=== PATIENT | female | born 1935 | race Caucasian/White ===

== ENCOUNTER 2018-02-23 10:42 | Emergency (ER) | payer OTHER ==
[~2018-02-23] VITALS: Ht 157.5 cm; Wt 56.7 kg
--- NOTE | 2018-02-23 11:06 | ED HEADACHE COMPLAINT ---
History of Present Illness General Chief Complaint: Headache Stated Complaint: BIBA YOUNG Source: patient, EMS Exam Limitations: poor historian Vital Signs & Intake/Output Vital Signs & Intake/Output Vital Signs Date Time Temp Pulse Resp B/P B/P Pulse O2 O2 Flow FiO2 Mean Ox Delivery Rate 02/23 1728 73 20 148/89 97 Room Air 02/23 1333 97.6 68 17 152/100 96 Room Air 02/23 1048 97.1 72 18 159/105 98 Room Air ED Intake and Output 02/24 0000 02/23 1200 Intake Total Output Total 300 Balance -300 Output, Urine 300 Patient 125 lb Weight Allergies Coded Allergies: No Known Allergies (02/23/18) Reconcile Medications Diltiazem HCl (Tiazac) (Unknown Strength) CAPSULE.ER (Unknown Dose) PO DAILY HEART (Reported) Fenofibrate Nanocrystallized (Fenofibrate) 48 MG TABLET 1 TAB PO DAILY CHOLESTEROL (Reported) Furosemide 40 MG TABLET 1 TAB PO DAILY WATER RETENTION (Reported) Metoprolol Tartrate (Unknown Strength) TABLET (Unknown Dose) PO DAILY HEART ( Reported) Minoxidil 10 MG TABLET 1 TAB PO DAILY HEART (Reported) Potassium Chloride (Unknown Strength) TAB.ER.PRT (Unknown Dose) PO DAILY SUPPLEMENT (Reported) Triage Note: PT TO ER VIA AMBULANCE, STATES THAT THIS AM WHEN SHE GOT OUT OF BED SHE FELT A LITTLE DIZZY AND SHE ATE AND WAS FEELING BETTER, PT HAS HISTORY OF HTN AND STATES THAT WHEN HER AIDE TOOK HER BP IT WAS ELEVATED, BP 159/105 AUTO AND 158/100 MANUAL AT TRIAGE. PT STATES THAT WHEN SHE MOVES SHE HAS BEEN FEELING DIZZY , AND HAS EPISODES OF SOB. DENIES CP Triage Nurses Notes Reviewed? yes Onset: Gradual Duration: better Timing: recent history Severity Numbers: 5 HPI: Patient is a 82-year-old female with a past medical history of hypertension and atrial fibrillation ON ASPIRIN anticoagulation who presents emergency room brought in by ambulance from private residence in which she was in her normal state of health yesterday patient woke up today with mild dizziness and lightheaded sensation and generalized weakness. Residence found out about patient's symptoms and called 911. Patient states that she recently moved from [place] however she does not know her address in which she lives in a [facility] Patient denies any fever chills headache blurred vision chest pain shortness of breath arm pain jaw pain nausea vomiting. Denies any dysuria hematuria Patient did eat breakfast this morning. Denies any room spinning sensation denies any change in visual acuity or slurred speech or facial droop or extremity weakness Patient does state that currently she feels improvement of symptoms (Kyrie Lei) Past History Travel History Traveled to [place] past 21 day No Medical History Any Pertinent Medical History? see below for history Cardiovascular: AFIB, hypertension Respiratory: NONE Gastrointestinal: NONE Hepatic: NONE Renal: NONE Musculoskeletal: NONE Psychiatric: NONE Endocrine: NONE Blood Disorders: NONE Cancer(s): NONE PRODUCT ASSURANCE ENGINEER/Reproductive: NONE Surgical History Surgical History: non-contributory Psychosocial History What is your primary language Khmer Tobacco Use: Never used ETOH Use: denies use Illicit Drug Use: denies illicit drug use Family History Hx Contributory? No (Kyrie Lei) Review of Systems Review of Systems Constitutional: Reports: see HPI, malaise, weakness. Eyes: Reports: no symptoms. Ears, Nose, Throat, Mouth: Reports: no symptoms. Respiratory: Reports: no symptoms. Cardiovascular: Reports: no symptoms. Gastrointestinal/Abdominal: Reports: no symptoms. Genitourinary: Reports: no symptoms. Musculoskeletal: Reports: no symptoms. Skin: Reports: no symptoms. Neurological/Psychological: Reports: no symptoms. Hematologic/Endocrine: Reports: no symptoms. Endocrine: Reports: no symptoms. Immunologic/Allergic: Reports: no symptoms. All Other Systems: Reviewed and Negative (Kyrie Lei) Physical Exam Physical Exam General Appearance: no apparent distress, alert, comfortable Head: atraumatic Eyes: Bilateral: normal appearance, PERRL, EOMI. Ears, Nose, Throat: normal pharynx, normal ENT inspection Neck: normal inspection, supple Respiratory: normal breath sounds, chest non-tender Cardiovascular: irregularly irregular Gastrointestinal: normal bowel sounds, soft, non-tender Extremities: normal inspection, normal range of motion, no edema Cranial Nerves: normal hearing, normal speech, PERRL Motor/Sensory: no motor/sensory deficits Skin: intact, normal color, warm/dry Comments: Patient is alert to place however disoriented to time Core Measures Sepsis Present: No Sepsis Focused Exam Completed? No (Kyrie Lei) Progress Differential Diagnosis: carotid dissection, cav sinus thromb, cluster YOUNG, encephalitis, IC mass/tumor, intracranial Hem., meningitis, migraine YOUNG, musculoskeletal pain, post LP headache, sinusitis, SSS thrombosis, subarach. Hem., tension YOUNG, temporal arteritis, TMJ syndrome, viral cephalgia Plan of Care: Orders Procedure Date/time Status Heart Healthy Diet 02/23 D Active TROPONIN LEVEL 02/23 1430 Complete EKG 02/23 1430 Active URINALYSIS 02/23 1147 Complete TROPONIN LEVEL 02/23 1106 Complete COMPREHENSIVE METABOLIC PANEL 02/23 1106 Complete CBC WITHOUT DIFFERENTIAL 02/23 1106 Complete EKG 02/23 1051 Active Laboratory Tests 02/23/18 1430: Troponin I < 0.01 02/23/18 1215: Urine Color YEL, Urine Clarity CLEAR, Urine pH 6.0, Ur Specific [place] 1.020, Urine Protein NEG, Urine Ketones NEG, Urine Nitrite NEG, Urine Bilirubin NEG, Urine Urobilinogen 0.2, Ur Leukocyte Esterase NEG, Ur Microscopic EXAM NOT REQUIRED, Urine Hemoglobin NEG, Urine Glucose NEG 02/23/18 1125: Anion Gap 10, Estimated GFR > 60, BUN/Creatinine Ratio 26.3 H, Glucose 86, Calcium 9.4, Total Bilirubin 0.6, AST 15, ALT 20, Alkaline Phosphatase 89, Troponin I < 0.01, Total Protein 6.7, Albumin 4.1, Globulin 2.6, Albumin/ Globulin Ratio 1.6, CBC w Diff NO MAN DIFF REQ, RBC 4.80, MCV 94.4, MCH 30.7, MCHC 32.5 L, RDW 17.6 H, MPV 8.7, Gran % 79.6 H, Lymphocytes % 12.0 L, Monocytes % 6.6, Eosinophils % 1.5, Basophils % 0.3, Absolute Granulocytes 7.7 H, Absolute Lymphocytes 1.2, Absolute Monocytes 0.6, Absolute Eosinophils 0.1, Absolute Basophils 0 Patient on examination shows no concerns of TIA or CVA no neurovascular impairment on exam NIH stroke scale 0 Patient resting comfortably at bedside however it does not know her own address Patient is following commands appropriately Currently resting comfortably bedside no symptoms [facility] was faxed transfer records to be obtained in which patient states that since moving from [place] 4 months ago she has been seen on 2 occasions there is she states for shoulder surgery I called [facility] and which they provided information that patient was admitted in December 2017 for concerns of a fall where she received ORIF of left proximal humerus, patient is known to have A. fib on aspirin due to multiple falls Patient had unremarkable blood work and is currently resting comfortably at bedside, I discussed results with patient. Patient noted to have normal steady gait 1236 I placed a call to patient's emergency contact number Maureen and which I left a message to both updating patient's clinical condition and disposition plan Patient received second troponin and EKG After extensive multiple phone calls to contact emergency numbers that the granddaughters were finally contacted in which they have been looking for the grandmother all morning, granddaughters state patient has been living in a private residence for many years and which there were also concerned of many episodes in the past of dizziness in which there were also concerns of onset of dementia however has not followed up with a provider. Patient has had 2 sets of troponins EKG there were unremarkable patient has been having normal steady gait and is without complaints while in the emergency room. CT scan of the head and blood work was unremarkable discussed all results with grand daughters in which they will present to [place] emergency room to shredder picker their grandmother. I strongly advised him to follow up and establish [facility] practice geriatrics provider discussed in the disposition and plan. Upon discharge patient looks well no apparent distress and will comply with discharge instructions and had no questions 1730 patient's granddaughter is here to shredder picker patient She has no questions Diagnostic Imaging: Viewed by Me: CT Scan. Radiology Impression: no acute abnormality, no fracture Initial ED EKG: AFIB (69 BPM) Repeat EKG: unchanged Comments: PATIENT: JENNIFER ANTONIO PRESENT AGE: 82 PATIENT ACCOUNT NO: [id number] : 35 LOCATION: [facility] [place] ORDERING PHYSICIAN: Kyrie JAIME SERVICE DATE: 02/23/18 EXAM TYPE: CAT - CT HEAD WO IV CONTRAST EXAMINATION: CT HEAD WITHOUT CONTRAST CLINICAL INFORMATION: Headache. COMPARISON: None TECHNIQUE: Contiguous axial imaging was performed from the skull base to vertex without intravenous administration of contrast. DLP: 616.38 mGy-cm FINDINGS: There is no evidence of acute intracranial hemorrhage or territorial infarction. No abnormal mass effect or midline shift is seen. Vargas to white matter differentiation is well preserved. No extra-axial fluid collections are identified. The ventricles and sulci are slightly commensurately prominent consistent with mild diffuse volume loss. There is a large oval area of CSF density in the posterior right basal ganglia, which may be consistent with sequelae of a lacunar infarct versus a markedly prominent perivascular space. There are scattered areas of low attenuation in the periventricular subcortical white matter. There are no acute osseous findings. There is hyperostosis frontalis interna. There are atheromatous calcifications of the cavernous internal carotid arteries bilaterally. There are no large scalp contusions or hematomas. The visualized mastoid air cells are well-aerated. There is aeration of the left petrous apex. There are retention cysts in the left maxillary sinus. IMPRESSION: 1. There are no acute bleeds or territorial infarcts. No masses are demonstrated. 2. There are changes consistent with mild diffuse volume loss. An area of CSF attenuation in the posterior right basal ganglia is noted as described above. There are retention cysts in the left maxillary sinus. DICTATED BY: Milton Bronson MD DATE/TIME DICTATED:02/23/181108 EDITOR [employer] CO FOUNDER:LAURE DATE/TIME TRANSCRIBED:02/23/181108 (Kyrie Lei) Departure Departure Disposition: HOME OR SELF CARE Condition: Stable Clinical Impression Primary Impression: Dizziness Referrals: Brittaney Bustamante MD Additional Instructions: As discussed tomorrow please follow-up with physician for further evaluation treatment, if symptoms worsen return to emergency him continue home medications as directed Departure Forms: Customer Survey General Discharge Information (Kyrie Lei) PA/[employer]ODUCTION WORKER Co-Sign Statement Statement: ED Attending supervision documentation- x I saw and evaluated the patient. I have also reviewed all the pertinent lab results and diagnostic results. I agree with the findings and the plan of care as documented in the PA's/SAWMILL PRODUCTION WORKER's documentation. [] I have reviewed the ED Record and agree with the PA's/SAWMILL PRODUCTION WORKER's documentation. [] Additions or exceptions (if any) to the PAs/SAWMILL PRODUCTION WORKER's note and plan are summarized below: [] (Akira Trent MD) PA/[employer]ODUCTION WORKER Co-Sign Statement Statement: ED Attending supervision documentation- [] I saw and evaluated the patient. I have also reviewed all the pertinent lab results and diagnostic results. I agree with the findings and the plan of care as documented in the PA's/SAWMILL PRODUCTION WORKER's documentation. [] I have reviewed the ED Record and agree with the PA's/SAWMILL PRODUCTION WORKER's documentation. [] Additions or exceptions (if any) to the PAs/SAWMILL PRODUCTION WORKER's note and plan are summarized below: [] (Kallie RODRIGUEZ,Kayden Wolf)
--- NOTE | 2018-02-23 11:17 | CT SCAN REPORT ---
EXAMINATION: CT HEAD WITHOUT CONTRAST CLINICAL INFORMATION: Headache. COMPARISON: None TECHNIQUE: Contiguous axial imaging was performed from the skull base to vertex without intravenous administration of contrast. DLP: 616.38 mGy-cm FINDINGS: There is no evidence of acute intracranial hemorrhage or territorial infarction. No abnormal mass effect or midline shift is seen. Vargas to white matter differentiation is well preserved. No extra-axial fluid collections are identified. The ventricles and sulci are slightly commensurately prominent consistent with mild diffuse volume loss. There is a large oval area of CSF density in the posterior right basal ganglia, which may be consistent with sequelae of a lacunar infarct versus a markedly prominent perivascular space. There are scattered areas of low attenuation in the periventricular subcortical white matter. There are no acute osseous findings. There is hyperostosis frontalis interna. There are atheromatous calcifications of the cavernous internal carotid arteries bilaterally. There are no large scalp contusions or hematomas. The visualized mastoid air cells are well-aerated. There is aeration of the left petrous apex. There are retention cysts in the left maxillary sinus. IMPRESSION: 1. There are no acute bleeds or territorial infarcts. No masses are demonstrated. 2. There are changes consistent with mild diffuse volume loss. An area of CSF attenuation in the posterior right basal ganglia is noted as described above. There are retention cysts in the left maxillary sinus.
[2018-02-23 11:36] LABS: ABSOLUTE BASOPHIL COUNT 0 /CUMM (0.0-0.2); ABSOLUTE EOSINOPHIL COUNT 0.1 /CUMM (0.0-0.7); ABSOLUTE GRANULOCYTE CT 7.7 /CUMM (1.4-6.5); ABSOLUTE LYMPH COUNT 1.2 /CUMM (1.2-3.4); ABSOLUTE MONOCYTE COUNT 0.6 /CUMM (0.10-0.60); BASOPHIL % 0.3 % (0.0-2.0); EOSINOPHIL % 1.5 % (0-5); GRANULOCYTE % 79.6 % (42.2-75.2); HEMATOCRIT 45.3 % (37-47); MEAN CORPUSCULAR HGB 30.7 PG (27.0-31.0); MEAN CORPUSCULAR HGB CONC 32.5 G/DL (33.0-37.0); MEAN CORPUSCULAR VOLUME 94.4 FL (81.0-99.0); MEAN PLATELET VOLUME 8.7 FL (7.4-10.4); PLATELET COUNT 217 /CUMM (130-400); RBC DISTRIBUTION WIDTH 17.6 % (11.5-14.5); WHITE BLOOD CELL COUNT 9.7 /CUMM (4.8-10.8)
[2018-02-23] MEDS ORDERED: METOPROLOL TART25 M1 PO (14:53)
[2018-02-23] MEDS ORDERED: TIAZAC120 MG PO (14:54)
[2018-02-23] MEDS ORDERED: MINOXIDIL10 M1 PO (14:54)
[2018-02-23] MEDS ORDERED: POTASSIUM CHLO20 ME2 PO (14:54)
[2018-02-23] MEDS ORDERED: FENOFIBRATE48 M1 PO (14:55)
[2018-02-23] MEDS ORDERED: FUROSEMIDE40 M1 PO (14:55)
[2018-02-23 17:28] VITALS: BP 148/89
== END 2018-02-23 17:40 ==
LOC: ERH 10:42
PROVIDERS: Physician Assistant
DX: R42 Dizziness and giddiness (principal); I10 Essential (primary) hypertension; I48.91 Unspecified atrial fibrillation
CPT/HCPCS: 81003; 93005; 93010